=== PATIENT | male | born 1955 | race Caucasian/White ===

== ENCOUNTER 2020-04-20 10:31 | Outpatient (REF) | payer MEDICARE, MEDICAID, SELFPAY ==
[2020-04-21 12:39] LABS: COVID-19 RT-PCR UVMMC Result Positive (Negative)
== END 2020-04-20 10:32 | disposition home or self-care (01) ==
LOC: NCHCN 10:31
PROVIDERS: PCP Physician Assistant Medical; Visit Provider Internal Medicine
DX: Z20.822 Contact with and (suspected) exposure to COVID-19 (principal)
CPT/HCPCS: U0003; U0005

== ENCOUNTER 2020-04-23 09:20 | Outpatient (CLI) | payer MEDICARE, MEDICAID, SELFPAY ==
[2020-04-23 11:49] VITALS: BP 153/78; PULSE 62; TEMP 36.8; O2SAT 94
[2020-04-23 12:36] VITALS: BP 120/81; PULSE 85; TEMP 36.8; O2SAT 92
[2020-04-23] MEDS: Normal Saline 500 ML 30 ML IV (12:44)
[2020-04-23] MEDS: Normal Saline Flush 10 ML SYR IVP (12:45)
[2020-04-23 12:49] VITALS: BP 153/78; PULSE 62; TEMP 36.8; O2SAT 94
[2020-04-23 12:51] VITALS: BP 120/71; PULSE 62; O2SAT 94
== END 2020-04-23 09:21 | disposition home or self-care (01) ==
LOC: INF 09:23
PROVIDERS: PCP Physician Assistant Medical; Visit Provider Family Medicine
DX: U07.1 COVID-19 (principal)
CPT/HCPCS: 96365

== ENCOUNTER 2021-02-04 19:03 | Outpatient (REF) | payer MEDICARE, MEDICAID, SELFPAY ==
[2021-02-06 12:08] LABS: COVID-19 RT-PCR UVMMC Result Negative (Negative)
== END 2021-02-04 19:04 | disposition home or self-care (01) ==
LOC: NCHCN 19:03
PROVIDERS: PCP Physician Assistant Medical; Visit Provider Internal Medicine
DX: Z20.822 Contact with and (suspected) exposure to COVID-19 (principal); J02.9 Acute pharyngitis, unspecified
CPT/HCPCS: U0003; U0005

== ENCOUNTER 2022-02-16 16:59 | Outpatient (REF) | payer MEDICARE, MEDICAID, SELFPAY ==
[2022-02-16 22:15] LABS: Anion Gap 9.3 mmol/L (3-11); BUN 20 mg/dL (7-18); CO2 27.7 mmol/L (21.0-32.0); CREATININE 1.1 mg/dL (0.70-1.30); Calcium 9.1 mg/dL (8.5-10.1); Calculated LDL 92 mg/dL (<100); Chloride 101 mmol/L (98-107); Cholesterol 160 mg/dL (<200); Estimated GFR 73.58 (mL/min/1.73m2); Glucose 90 mg/dL (74-106); HDL Cholesterol 56 mg/dL (40-60); Potassium 4.2 mmol/L (3.5-5.1); Sodium 138 mmol/L (136-145); TSH 1.85 uIU/mL (0.36-3.74); Triglyceride 63 mg/dL (<150)
== END 2022-02-16 17:00 | disposition home or self-care (01) ==
LOC: NCHCN 16:59
PROVIDERS: PCP Physician Assistant Medical; Visit Provider Internal Medicine
DX: I10 Essential (primary) hypertension (principal)
CPT/HCPCS: 80048; 80061; 84443

== ENCOUNTER 2022-03-21 18:34 | Outpatient (REF) | payer MEDICARE, MEDICAID, SELFPAY ==
[2022-03-21 20:11] LABS: Anion Gap 12.6 mmol/L (3-11); BUN 36 mg/dL (7-18); CO2 31.4 mmol/L (21.0-32.0); CREATININE 2.1 mg/dL (0.70-1.30); Calcium 9.8 mg/dL (8.5-10.1); Chloride 92 mmol/L (98-107); Estimated GFR 33.87 (mL/min/1.73m2); Glucose 86 mg/dL (74-106); Magnesium 2.4 mg/dL (1.8-2.4); Sodium 136 mmol/L (136-145)
[2022-03-21 20:39] LABS: Potassium 2.9 mmol/L (3.5-5.1)
== END 2022-03-21 18:35 | disposition home or self-care (01) ==
LOC: NCHCN 18:34
PROVIDERS: PCP Physician Assistant Medical; Visit Provider Internal Medicine
DX: I10 Essential (primary) hypertension (principal); F41.9 Anxiety disorder, unspecified; N43.3 Hydrocele, unspecified
CPT/HCPCS: 80048; 83735

== ENCOUNTER 2022-03-25 17:28 | Outpatient (REF) | payer MEDICARE, MEDICAID, SELFPAY ==
[2022-03-25 18:57] LABS: Anion Gap 10.3 mmol/L (3-11); BUN 26 mg/dL (7-18); CO2 31.7 mmol/L (21.0-32.0); CREATININE 1.7 mg/dL (0.70-1.30); Calcium 10.1 mg/dL (8.5-10.1); Chloride 96 mmol/L (98-107); Estimated GFR 43.64 (mL/min/1.73m2); Glucose 96 mg/dL (74-106); Potassium 3.7 mmol/L (3.5-5.1); Sodium 138 mmol/L (136-145)
== END 2022-03-25 17:29 | disposition home or self-care (01) ==
LOC: NCHCN 17:28
PROVIDERS: PCP Physician Assistant Medical; Visit Provider Internal Medicine
DX: I10 Essential (primary) hypertension (principal); K86.2 Cyst of pancreas; Z00.00 Encounter for general adult medical examination without abnormal findings
CPT/HCPCS: 80048

== ENCOUNTER 2022-04-15 19:04 | Outpatient (REF) | payer MEDICARE, MEDICAID, SELFPAY ==
--- OUTSIDE RECORDS SUMMARY | 2022-04-15 19:06 | XMS_ITS | Continuity of Care Document ---
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
[2022-04-15 19:27] LABS: Anion Gap 8.9 mmol/L (3-11); BUN 19 mg/dL (7-18); CO2 30.1 mmol/L (21.0-32.0); CREATININE 1.3 mg/dL (0.70-1.30); Calcium 9.2 mg/dL (8.5-10.1); Chloride 100 mmol/L (98-107); Estimated GFR 60.21 (mL/min/1.73m2); Glucose 90 mg/dL (74-106); Potassium 3.6 mmol/L (3.5-5.1); Sodium 139 mmol/L (136-145)
== END 2022-04-15 19:05 | disposition home or self-care (01) ==
LOC: NCHCN 19:04
PROVIDERS: PCP Physician Assistant Medical; Visit Provider Internal Medicine
DX: N17.9 Acute kidney failure, unspecified (principal)
CPT/HCPCS: 80048

== ENCOUNTER 2024-05-17 15:16 | Outpatient (REF) | payer MEDICARE, MEDICAID, SELFPAY ==
[2024-05-17 19:28] LABS: Anion Gap 12.9 mmol/L (3-11); BUN 20 mg/dL (7-18); CO2 25.1 mmol/L (21.0-32.0); CREATININE 1.5 mg/dL (0.70-1.30); Calcium 9.6 mg/dL (8.5-10.1); Calculated LDL 83 mg/dL (<100); Chloride 104 mmol/L (98-107); Cholesterol 166 mg/dL (<200); Estimated GFR 50.08 (mL/min/1.73m2); Glucose 87 mg/dL (74-106); HDL Cholesterol 77 mg/dL (>or=40); Sodium 142 mmol/L (136-145); TSH 1.18 uIU/mL (0.36-3.74); Triglyceride 34 mg/dL (<150)
== END 2024-05-17 15:17 | disposition home or self-care (01) ==
LOC: NCHCN 15:16
PROVIDERS: PCP Physician Assistant Medical; Visit Provider Internal Medicine
DX: I10 Essential (primary) hypertension (principal)
CPT/HCPCS: 80048; 80061; 84443

== ENCOUNTER 2024-06-24 15:17 | Outpatient (REF) | payer MEDICARE, MEDICAID, SELFPAY ==
[2024-06-24 20:19] LABS: Potassium 3.1 mmol/L (3.5-5.1)
[2024-06-25 19:19] LABS: PSA, Screening 3.3 ng/mL (<=6.5)
== END 2024-06-24 15:18 | disposition home or self-care (01) ==
LOC: NCHCN 15:17
PROVIDERS: PCP Physician Assistant Medical; Visit Provider Internal Medicine
DX: Z12.5 Encounter for screening for malignant neoplasm of prostate (principal); E87.5 Hyperkalemia
CPT/HCPCS: 84153; 84132